=== PATIENT | female | born 1975 | race Hispanic/Latino ===

== ENCOUNTER 2024-07-20 07:51 | Emergency (ER) | payer OTHER ==
[~2024-07-20] VITALS: Ht 165.1 cm; Wt 79.4 kg
[2024-07-20 10:03] VITALS: BP 121/85; PULSE 78; RESP 16; TEMP 98.7; O2SAT 98
[2024-07-24] MEDS ORDERED: TOPI100T37 PO (13:42)
[2024-07-24] MEDS ORDERED: TOPI-97 PO (13:42)
== END 2024-07-20 11:00 | disposition home or self-care (01) ==
LOC: EEVIPCON 07:51 → EDH 07:51
DX: S92.351A Displaced fracture of fifth metatarsal bone, right foot, initial encounter for closed fracture (principal); S96.811A Strain of other specified muscles and tendons at ankle and foot level, right foot, initial encounter; Z98.890 Other specified postprocedural states; W18.39XA Other fall on same level, initial encounter; Y93.89 Activity, other specified; Y92.89 Other specified places as the place of occurrence of the external cause; Y99.8 Other external cause status
CPT/HCPCS: 29125; 29515; 73630

== ENCOUNTER 2024-07-25 06:40 | Day surgery (SDC) | payer OTHER ==
[2024-07-24 13:16] LABS: ALBUMIN 3.9 g/dL (3.5-5.0); CREATININE 0.7 mg/dL (0.5-1.0); POTASSIUM 4.1 mmol/L (3.5-5.1)
[2024-07-24 13:17] LABS: BASOPHILS # (AUTO) 0.06 K/uL (0.00-0.20); BASOPHILS % (AUTO) 0.7 % (0.0-5.0); EOSINOPHILS % (AUTO) 2.2 % (0.0-8.0); HEMATOCRIT 40.8 % (36-48); IMMATURE GRANULOCYTE ABSOLUTE 0.03 K/uL (0-1); LYMPHOCYTES # (AUTO) 2.7 K/uL (1.0-4.8); LYMPHOCYTES % (AUTO) 29.2 % (21.0-51.0); MEAN CORPUSCULAR HEMOGLOBIN 32.3 pg (27.0-33.0); MEAN CORPUSCULAR HGB CONC 34.1 g/dL (32.0-36.0); MEAN CORPUSCULAR VOLUME 94.7 fL (79-99); MONOCYTES # (AUTO) 0.7 K/uL (0.1-1.0); MONOCYTES % (AUTO) 7.6 % (3.0-13.0); NEUTROPHILS # (AUTO) 5.5 K/uL (1.8-7.7); PLATELET COUNT (AUTO) 358 K/uL (130-400); RED BLOOD CELL COUNT(AUTO) 4.31 MIL/uL (4.00-5.50); RED CELL DISTRIBUTION WIDTH 12.3 % (11.0-15.5); WHITE BLOOD COUNT (AUTO) 9.2 K/uL (4.8-10.8)
[2024-07-24 13:19] VITALS: BP 140/77; PULSE 91; RESP 18; TEMP 97.6
[2024-07-24 13:31] LABS: INR 1.06 (0.85-1.15); PROTHROMBIN TIME 11.4 SEC (9.6-11.6)
[2024-07-24 13:32] LABS: PARTIAL THROMBOPLASTIN TIME 26.1 SEC (26.3-35.5)
[2024-07-25] VITALS (17 sets, daily range): BP systolic 123–149; BP diastolic 63–96; PULSE 66–85; RESP 13–18; TEMP 97.9–98.2
[~2024-07-25] VITALS: Ht 165.1 cm; Wt 83.7 kg
[2024-07-25] MEDS: LACTATED RINGERS 1000ML 1,000 ML IV ONE
[~2024-07-25 06:40] MED LIST: TOPI-97 PO; TOPI100T37 PO
[2024-07-25] MEDS ORDERED: rocuRONium bROMide 10MG/1ML 5ML VL ONE (07:13)
[2024-07-25] MEDS ORDERED: MIDAZOLAM HCL 1 MG/ML 2ML VIAL ONE (07:13)
[2024-07-25] MEDS ORDERED: proPOFol 10 MG/ML 20ML VIAL IV ONE (07:13)
[2024-07-25] MEDS ORDERED: FENTanyl CITRate PF 50 MCG/1 ML 2ML VIAL ONE ×2 (07:14→09:47)
[2024-07-25] MEDS ORDERED: ondanSETRON 4MG INJ ONE (07:31)
[2024-07-25] MEDS ORDERED: ROPivacaine 0.5% 5MG/ML 30ML ONE (07:39)
[2024-07-25] MEDS ORDERED: LIDOCAINE 2%-EPI 1:200,000 20 ML VIAL IJ ONE (07:39)
[2024-07-25] MEDS ORDERED: dexaMETHasone SOD PHOSPHATE 10MG/ML 1ML VIAL ONE (07:40)
[2024-07-25] MEDS: ceFAZolin SODIUM 2 GM VIAL ONE (08:35)
[2024-07-25] MEDS ORDERED: TRAM50TA4 PO (08:45)
[2024-07-25] MEDS ORDERED: GLYCOPYRROLATE 0.2 MG/ML 5 ML VIAL ONE (09:47)
[2024-07-25] MEDS ORDERED: NEOSTIGMINE METHYLSULFATE 1MG/ML IV ONE (09:47)
[2024-07-25] MEDS ORDERED: ketOROlac 30MG VIAL (30MG/ML) ONE (09:49)
[2024-07-25] MEDS: acetaMINOPHEN 1,000 MG/100 ML VIAL IV ONE (10:50)
== END 2024-07-25 12:10 | disposition home or self-care (01) ==
LOC: DAH 06:40
PROVIDERS: ATTEND Student in an Organized Health Care Education/Training Program
DX: S92.351A Displaced fracture of fifth metatarsal bone, right foot, initial encounter for closed fracture (principal); R26.89 Other abnormalities of gait and mobility; G43.909 Migraine, unspecified, not intractable, without status migrainosus; M19.90 Unspecified osteoarthritis, unspecified site; Z86.73 Personal history of transient ischemic attack (TIA), and cerebral infarction without residual deficits; W19.XXXA Unspecified fall, initial encounter; X50.1XXA Overexertion from prolonged static or awkward postures, initial encounter; Y93.89 Activity, other specified; Y92.481 Parking lot as the place of occurrence of the external cause; Y99.8 Other external cause status; Z79.01 Long term (current) use of anticoagulants; Z79.899 Other long term (current) drug therapy
CPT/HCPCS: 82040; 80048; 84703; 85025; 85610; 85730; 84134; 86140; 36415; 87641; 28485; 64450; 73630; 76942; C1713; A4663; J7120 ×2; A4649 ×3; J3010 ×2; J1100; J3490 ×3; J2250; J2704; J2405; J1885; J2710; J2795; J0690; A6223; A4930 ×2; A5120; A4215 ×2; A4223; A4213; A4222; A4221